=== PATIENT | male | born 1995 | race Caucasian/White ===

== ENCOUNTER 2018-04-05 02:11 | Emergency (ER) | payer OTHER ==
[~2018-04-05] VITALS: Ht 182.9 cm; Wt 139.7 kg
--- NOTE | ~2018-04-05 | EKG ---
[place] [address] [facility] [place] [address] ELECTROCARDIOGRAM REPORT Name: BEN ROBERTS Room #: DEP BAUTISTA Villasenor#: [id number] Admission: 04/05/18 Attend Phys: Discharge: 04/05/18 Date of : [birth year] Report #: [id number] THIS REPORT FOR: //name// [facility] ED Test Date: 2018-04-05 Test Time: 02:17:36 Pat Name: BEN ROBERTS Department: Room: Gender: Department Manager: MZOOK : 1995 Requested By: Tony Gaona Order Number: [id number] MD: Sebastian Castillo Measurements Intervals [place] Rate: 74 P: 48 AR: 162 QRS: 11 QRSD: 109 T: 32 QT: 387 QTc: 430 Interpretive Statements Sinus rhythm No significant abnormality No previous ECG available for comparison Electronically Signed On 04-05-2018 8:52:17 CDT by Sebastian Castillo [email or web address] <ELECTRONICALLY SIGNED> By: Sebastian Castillo MD, [facility] 04/05/18 [id number] [id number] 0217 Sebastian Castillo MD, FACC /EPI
[2018-04-05] MEDS ORDERED: MELATONIN5 M1 PO (02:23)
[2018-04-05] MEDS ORDERED: IBUPROFEN 200200 M1 PO (02:23)
[2018-04-05 02:24] VITALS: BP 146/85
== END 2018-04-05 03:04 | disposition home or self-care (01) ==
LOC: ER 02:11
DX: R03.0 Elevated blood-pressure reading, without diagnosis of hypertension (principal); Z91.048 Other nonmedicinal substance allergy status